=== PATIENT | female | born 1990 | race African-American/Black ===

== ENCOUNTER 2020-01-01 00:27 | Emergency (ER) | payer OTHER, SELFPAY ==
--- NOTE | ~2020-01-01 | CT_ITS ---
EXAMINATION: CT soft tissue neck w con DATE: 01/01/2020 03:43 INDICATION: Right jaw and neck pain. Tooth pain. TECHNIQUE: Computed tomography (CT) of the neck was performed with 75 mL Omnipaque-350 intravenous co ntrast. Automated exposure control and iterative reconstruction technique were employed. The dose-phillip gth product was 526.56 mGy-cm. COMPARISON: None FINDINGS: There are no pathologically enlarged lymph nodes. There is mild mucosal thickening in left maxillary sinus. Tooth 14 is broken with periapical lucencies. Tooth 29 is broken with periapical yvonne encies. There are periapical lucencies of tooth 30. There is soft tissue swelling superficial to the right mandibular body. No subperiosteal abscess. IMPRESSION: 1. Dental disease. Reviewed, dictated and finalized at location A. OFF DRIVER IMPRESSION: 1. Dental disease.
[2020-01-01 01:06] VITALS: BP 130/86; PULSE 83; RESP 18; TEMP 36.8; O2SAT 100
[2020-01-01 01:58] VITALS: BP 141/87; PULSE 62; RESP 16; TEMP 36.8; O2SAT 100
--- NOTE | 2020-01-01 02:20 | ED.DENTAL ---
HPI - Dental/Oral General Chief complaint: Dental/Oral Stated complaint: TOOTH Time Seen by Provider: 01/01/20 02:18 Source: patient and RN notes reviewed Mode of arrival: other Limitations: no limitations History of Present Illness HPI Narrative: Pt is a 29 y/o female who presents to the ED with c/o tooth pain on her right upper jaw that radiates to her neck that began a couple of weeks ago. Pt went to her dentist in [facility] in [facility] and was given abx. Pt is unsure of the abx she was given, but she states that she was on the abx for a couple of weeks. Pt has taken ASA and Tylenol, but with no relief. Pt had ASA powder at 4 PM yesterday (12/31/19). Pt also reports otalgia and difficulty sleeping. Complaint: tooth pain Onset (ago): week(s) (couple) Duration: constant Relieving factors: nothing Associated symptoms: ear pain and other (difficulty sleeping) Treatment prior to arrival: other (Tylenol and ASA) Related Data Allergies Allergy/AdvReac Type Severity Reaction Status Date / Time No Known Allergies Allergy Unverified 02/13/18 18:14 Review of Systems Review of Systems: All systems reviewed & are unremarkable except as noted in HPI and below Constitutional: Constitutional: Reports difficulty sleeping ENT: Reports dental pain (on her right upper jaw that radiates to her neck) and Reports otalgia PMFSH Past Medical History Medical History (Updated 01/01/20 @ 04:16 by Sabrina Chang MD) Patient denies significant medical history Surgical History Surgical History (Updated 01/01/20 @ 02:27 by Oma Oliveros) Hx of appendectomy Hx of section x3 Social History Social History (Updated 01/01/20 @ 02:28 by Oma Oliveros) Smoking status: Never smoker Gender identity (if verbalized by the patient): Female Exam Const: General: cooperative, no acute distress and alert Nutritional Appearance: well nourished Orientation/consciousness: patient oriented x3 Limitations: no limitations HENMT: Mouth: Yes other (no fullness in bottom of her mouth) Teeth and gingiva: caries, gingiva abnormal edematous (Mild right lower surrounding molars, no fluctuance) and tender (Right lower molars) and other (Tooth 29 missing, decay teeth 30, 31, and 32) Throat: posterior oropharynx normal and uvula midline Other: Pt has mild gum swelling with no fluctuance Neck: Neck: no lymphadenopathy (significant) Resp: Effort & Inspection: normal respiratory effort Auscultation: clear to auscultation bilaterally Cardio: Rate: regular rate Rhythm: regular rhythm Skin: General skin exam: normal color Neuro: General: patient oriented x3 Cognition (Neuro): normal cognition Speech: normal speech Extrem: General: normal to inspection, full ROM and no clubbing, cyanosis or edema Psych: Mental Status: mental status grossly normal Affect: normal affect Attitude: cooperative Course Course Emergency Course: Patient presents with right-sided toothache with report of swelling to the right lower jaw. Patient states pain is going up into her ear and all the way down the right side of her neck. Patient sent for CT scan to rule out Ludewig's angina. Patient will be placed on antibiotics and is advised to follow-up with dentist for further care. Vital Signs Vital signs: Vital Signs Temperature 98.3 F 01/01/20 01:06 Pulse Rate 83 01/01/20 01:06 Respiratory Rate 18 01/01/20 01:06 Blood Pressure 130/86 01/01/20 01:06 Pulse Oximetry 100 01/01/20 01:06 Temperature 98.3 F 01/01/20 01:58 Pulse Rate 62 01/01/20 01:58 Respiratory Rate 16 01/01/20 01:58 Blood Pressure 141/87 H 01/01/20 01:58 Pulse Oximetry 100 01/01/20 01:58 MDM - Dental/Oral Differential Diagnosis Differential diagnosis: Likely gingival abscess, dental caries, toothache, dental abscess and other (Ludewig's angina) Lab Data Result diagrams: 01/01/20 03:31 Labs: Lab Results 01/01/20 Range/Un
[2020-01-01] MEDS: KETOROLAC 30 MG/ML VIAL (*BKC) IV PUSH (03:02)
[2020-01-01] MEDS: CLINDAMYCIN 900 MG/NS 50 ML 900 MG/50 ML PIGGYBACK 50 MG IVPB (03:03)
[2020-01-01 03:32] VITALS: TEMP 36.8
[2020-01-01 03:33] LABS: Blood Urea Nitrogen 11 mg/dL (8-26); Estimated CRCL calculation 136 ml/min; Estimated Glomerular Filt Rate > 60
[2020-01-01 04:42] VITALS: BP 134/78; PULSE 68; RESP 18; TEMP 36.9; O2SAT 99
== END 2020-01-01 04:44 | disposition home or self-care (01) ==
PROVIDERS: Emergency Provider Emergency Medicine
DX: K02.9 Dental caries, unspecified (principal)
CPT/HCPCS: 70491; 96365; 96375; 99284; J1885; Q9967

== ENCOUNTER 2020-01-02 04:35 | Emergency (ER) | payer OTHER, SELFPAY ==
[2020-01-02 04:42] VITALS: BP 143/71; PULSE 60; RESP 18; TEMP 36.7; O2SAT 100
--- NOTE | 2020-01-02 05:05 | PC.NURSE ---
Patient called this nurse into room to state that her tooth started to throb really bad then started to bleed. This nurse assessed the patient's tooth and mouth, there was clotting blood and slight bleeding from patient's right lower jaw, where she had her tooth removed. EDP notified.
--- NOTE | 2020-01-02 05:18 | ED.DENTAL ---
HPI - Dental/Oral General Chief complaint: Dental/Oral Stated complaint: dental pain Time Seen by Provider: 01/02/20 04:39 Source: old records reviewed History of Present Illness HPI Narrative: Patient presents emergency department from home for dental pain. Patient states that she has been having pain in her right lower tooth for the past several days she was seen in the emergency department last night and was prescribed antibiotics. Patient states she also had a CT scan at that time. She went to an emergency dental appointment today and had a tooth pulled at the dental clinic. Patient states that since that time she has continued to have pain in the right lower jaw with swelling present. She states that she was given Tylenol 3 for the pain with minimal relief. Patient states she has been taking her antibiotics as prescribed. She denies any fevers or chills inability to swallow or any other symptoms of concern Related Data Allergies Allergy/AdvReac Type Severity Reaction Status Date / Time No Known Allergies Allergy Unverified 02/13/18 18:14 Review of Systems Review of Systems: Narrative: Gen.: Denies fevers or chills ENT: HPI Respiratory: Denies shortness of breath CV: Denies chest pain GI: Denies abdominal pain nausea, emesis denies chance of Musculoskeletal: Denies neck pain Neuro: Denies headache Skin: Denies rash Except as documented, all other systems reviewed and negative PMFSH Past Medical History Medical History Patient denies significant medical history Surgical History Surgical History (Updated 01/01/20 @ 02:27 by Oma Oliveros) Hx of appendectomy Hx of section x3 Social History Social History Smoking status: Never smoker Gender identity (if verbalized by the patient): Female Exam Narrative: Exam Narrative: APPEARANCE: No acute distress, nontoxic, resting in bed HEENT: Normocephalic, atraumatic, TMs clear bilaterally, nares patent, oral mucosa moist, airway patent, tooth #29 has been removed there is a small wound with no active bleeding present no erythema the gum no fluctuance, there were several other carious teeth. Tender to palpation over the jaw in this region with mild swelling no erythema or fluctuance there is no submandibular or sublingual or tenderness, uvula midline voice normal tolerating own secretions RESPIRATORY: No respiratory distress MUSCULOSKELETAl: Moves all extremities. NEURO: Awake and alert. Following commands, speech normal, no focal deficits SKIN:: Warm, dry. Normal Color PSYCHIATRIC: Normal affect/mood Course Course Emergency Course: Reviewed old records. Reviewed CT scan. At this time not believe a repeat CT scan is indicated as the risk of radiation outweighs benefits. At this time I will switch the patient's antibiotics had ibuprofen and have patient follow-up with dentist as outpatient Vital Signs Vital signs: Vital Signs Temperature 98.1 F 01/02/20 04:42 Pulse Rate 60 01/02/20 04:42 Respiratory Rate 18 01/02/20 04:42 Blood Pressure 143/71 H 01/02/20 04:42 Pulse Oximetry 100 01/02/20 04:42 Temperature 98.1 F 01/02/20 04:42 Pulse Rate 60 01/02/20 04:42 Respiratory Rate 18 01/02/20 04:42 Blood Pressure 143/71 H 01/02/20 04:42 Pulse Oximetry 100 01/02/20 04:42 Discharge Plan Discharge Clinical Impression: Odontalgia Patient Disposition: Home, Self-Care Condition: Stable Instructions: Antibiotic Form, Toothache (ED) Additional Instructions: Return for increasing pain, fever vomiting or any other symptoms of concern. Stop taking her penicillin and instead take clindamycin as prescribed Prescriptions: New ibuprofen [IBU] 600 mg tablet 600 mg PO Q6H PRN (Reason: pain) Qty: 20 RF: 0 clindamycin HCl 300 mg capsule 300 mg PO Q6H Qty: 30 RF: 0 No Action
[2020-01-02] MEDS: CLINDAMYCIN HCL 150 MG CAP 300 MG PO (05:32)
[2020-01-02 07:05] VITALS: BP 123/65; PULSE 63; RESP 18; O2SAT 97
== END 2020-01-02 07:05 | disposition home or self-care (01) ==
PROVIDERS: Emergency Provider Emergency Medicine
DX: K08.89 Other specified disorders of teeth and supporting structures (principal)
CPT/HCPCS: 99283; A9270

== ENCOUNTER 2020-10-05 08:25 | Emergency (ER) | payer OTHER, SELFPAY ==
[2020-10-05 08:32] VITALS: BP 111/84; PULSE 73; RESP 16; TEMP 36; O2SAT 99
--- NOTE | 2020-10-05 08:37 | ED.DENTAL ---
HPI - Dental/Oral General Chief complaint: Dental/Oral Stated complaint: Tooth Pain Source: patient Mode of arrival: ambulatory Limitations: no limitations History of Present Illness HPI Narrative: Patient is a 29 yo female who presents with left lower dental pain x3 to 4 days. Patient reports that she has a dental appointment in November and was referred here for antibiotics and pain control. Patient denies all other complaints. Patient denies significant past medical history. Patient denies taking anything for pain prior to arrival. MD Complaint: tooth pain Related Data Allergies Allergy/AdvReac Type Severity Reaction Status Date / Time No Known Allergies Allergy Unverified 02/13/18 18:14 Review of Systems Review of Systems: Narrative: CONSTITUTIONAL: Denies fever, chills, or sweats. EYES: Denies visual changes, redness, or discharge. ENT: Denies rhinorrhea, congestion, sore throat, or otalgia. Reports the left lower dental pain x3 days CARDIOVASCULAR: Denies chest pain, palpitations, or edema. RESPIRATORY: Denies cough or dyspnea. GASTROINTESTINAL: Denies abdominal pain, nausea, vomiting, or diarrhea. GENITOURINARY: Denies dysuria or hematuria. SKIN: Denies rash or itching. MUSCULOSKELETAL: Denies back pain, joint pain, or myalgia. NEUROLOGIC: Denies headache, numbness, dizziness, or weakness. PSYCHIATRIC: Denies anxiety or depression. PMFSH Past Medical History Medical History (Updated 10/05/20 @ 08:45 by MINERVA Borja) Patient denies significant medical history Surgical History Surgical History Hx of appendectomy Hx of section x3 Family History Family History Other Diabetes mellitus Social History Social History Smoking status: Never smoker Alcohol intake: never Substance use: never Living arrangements: with family Gender identity (if verbalized by the patient): Female Exam Narrative: Exam Narrative: GENERAL: Well-appearing, well-nourished, and in no acute distress. HEAD: Normocephalic, atraumatic. EYES: No redness or drainage. ENT: Mucous membranes pink and moist. Multiple dental caries, dental fractures. CHEST: No respiratory distress. HEART: Regular rate and rhythm. EXTREMITIES: Normal range of motion. SKIN: Warm, dry, no rash. NEURO: No focal deficits. Alert and oriented x3. Gait steady. PSYCH: Normal affect. No signs of depression or anxiety. Course Vital Signs Vital signs: Vital Signs Temperature 36.0 C L 10/05/20 08:32 Pulse Rate 73 10/05/20 08:32 Respiratory Rate 16 10/05/20 08:32 Blood Pressure 111/84 10/05/20 08:32 Pulse Oximetry 99 10/05/20 08:32 Temperature 36.0 C L 10/05/20 08:32 Pulse Rate 73 10/05/20 08:32 Respiratory Rate 16 10/05/20 08:32 Blood Pressure 111/84 10/05/20 08:32 Pulse Oximetry 99 10/05/20 08:32 Reviewed. MDM - Dental/Oral MDM Narrative Medical decision making narrative: Patient has multiple dental caries and dental fractures. Discussed with patient the need for follow-up with dentist. Patient has an appointment in November. Patient be started on antibiotics at this time. Patient is stable for discharge to home with outpatient follow-up as needed. Differential Diagnosis Differential diagnosis: Likely gingival abscess, dental caries, toothache, dental abscess and fracture of tooth Medical Records Attestation: I reviewed the patient's medical records. Critical Care Time Critical Care Time Critical Care Time: No Discharge Plan Discharge Clinical Impression: Toothache, Dental caries Patient Disposition: Home, Self-Care Condition: Stable Instructions: Antibiotic Form, Toothache (ED) Additional Instructions: Take antibiotics as directed. Take the full course of antibiotics. Take ibuprofen as directed
== END 2020-10-05 08:49 | disposition home or self-care (01) ==
PROVIDERS: Emergency Provider Nurse Practitioner
DX: K02.9 Dental caries, unspecified (principal)
CPT/HCPCS: 99213; G0463

== ENCOUNTER 2021-02-24 10:06 | Emergency (ER) | payer OTHER, SELFPAY ==
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
[2021-02-24 10:15] VITALS: BP 126/70; PULSE 66; RESP 18; TEMP 36.4; O2SAT 100
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
== END 2021-02-24 11:33 | disposition home or self-care (01) ==
PROVIDERS: Emergency Provider Nurse Practitioner
DX: S16.1XXA Strain of muscle, fascia and tendon at neck level, initial encounter (principal); S20.222A Contusion of left back wall of thorax, initial encounter; S20.212A Contusion of left front wall of thorax, initial encounter; S40.012A Contusion of left shoulder, initial encounter; S80.01XA Contusion of right knee, initial encounter; S10.91XA Abrasion of unspecified part of neck, initial encounter; V47.5XXA Car driver injured in collision with fixed or stationary object in traffic accident, initial encounter
CPT/HCPCS: 71046; 72050; 73030; 73562; 99214; G0463

== ENCOUNTER 2023-11-29 01:49 | Emergency (ER) | payer OTHER, SELFPAY ==
[2023-11-29] VITALS (9 sets, daily range): BP systolic 127–130; BP diastolic 81–92; PULSE 60–88; RESP 16–19; TEMP 36.6; O2SAT 99–100
--- NOTE | ~2023-11-29 | XR_ITS ---
Portable chest x-ray Comparison: 02/24/2021 Clinical History: Headache, weakness Findings: Lungs are clear, without focal consolidation or pleural effusion. Cardiomediastinal silho uette is stable. Bones and soft tissues are unremarkable. Impression: Normal chest. Reviewed, dictated and finalized at [facility]. P SEWER Impression: Normal chest.
--- NOTE | 2023-11-29 02:29 | ECG_ITS ---
Measurements Intervals [place] Rate: 48 P: 43 VA: 178 QRS: 11 QRSD: 86 T: 4 QT: 452 QTc: 406 Interpretive Statements SINUS BRADYCARDIA VOLTAGE CRITERIA FOR LVH NONSPECIFIC T-WAVE ABNORMALITY- ANTEROLAT/INF LEADS ABNORMAL ECG NO PREVIOUS ECG AVAILABLE FOR COMPARISON Electronically Signed On 11-29-2023 6:17:44 [employer]IS[employer]LE CHECKOUT TECHNICIAN by Jesus Alberto Morris D.O.
[2023-11-29 02:56] LABS: Appearance Urine Clear (Clear); Bilirubin Urine Negative (Negative); Blood Urine Negative (Negative); Color Urine Yellow (Yellow); Glucose Urine UA Negative (Negative); Ketones Urine Negative (Negative); Leukocyte Esterase Ur Negative LEU/UL (Negative); Nitrate Urine Negative (Negative); Protein Urine Negative (Negative); Specific Grav Ur 1.006 (1.001-1.035); pH Urine 6.5 (5.0-9.0)
[2023-11-29] MEDS: SODIUM CHLORIDE 0.9% IV 1,000 ML 999 ML IV CONT (02:57)
[2023-11-29] MEDS: MECLIZINE HCL 25 MG TABLET PO (02:57)
[2023-11-29] MEDS: diphenhydrAMINE HCl INJ 50 MG/ML VIAL IV PUSH (02:57)
[2023-11-29] MEDS: PROCHLORPERAZINE EDISYLATE 10 MG/2 ML VIAL IV PUSH (02:57)
[2023-11-29 03:00] LABS: Basophils Percent Auto 0.5 % (0.2-1.2); Eosinophils Absolute Auto 0.2 K/mm3 (0-0.3); Eosinophils Percent Auto 3.7 % (0-4.4); Hematocrit 36.4 % (37.0-47.0); Hemoglobin 11.2 g/dL (12.0-15.0); Immature Granulocyte Absolute 0.02 K/mm3 (0.00-0.031); Immature Granulocyte Percent A 0.4 % (0-0.5); Lymphocytes Absolute Auto 1.77 K/mm3 (0.9-3.2); Lymphocytes Percent Auto 31.3 % (18.3-44.2); Mean Corpuscular HGB Conc 30.8 g/dl (32-36); Mean Corpuscular Hemoglobin 25.7 pg (26-34); Mean Corpuscular Volume 83.7 fl (80-100); Mean Platelet Volume 9.6 fl (7.4-10.4); Monocytes Absolute Auto 0.5 K/mm3 (0.1-0.6); Neutrophils Absolute Auto 3.2 K/mm3 (1.3-6.7); Neutrophils Percent Auto 56.1 % (45.5-73.1); Platelet Count Result 328 k/mm3 (150-375); Red Blood Count 4.35 M/mm3 (4.2-5.4); Red Cell Distribution Width 14.5 % (11.5-14.5); White Blood Count 5.7 K/mm3 (4.5-10.0)
[2023-11-29 03:05] LABS: Add Urine Microscopic? NO
[2023-11-29 03:11] LABS: Magnesium 2.2 mg/dL (1.6-2.3)
[2023-11-29 03:12] LABS: Alanine Aminotransferase 60 U/L (6-35); Albumin Level 3.9 g/dL (3.5-5.1); Alkaline Phosphatase 75 U/L (38-126); Anion Gap 7 mmol/L (8-16); Aspartate Amino Transferase 34 U/L (14-36); Bilirubin,Total 0.5 mg/dL (0.2-1.3); Blood Urea Nitrogen 9 mg/dL (7-17); Calcium 9.2 mg/dL (8.4-10.2); Carbon Dioxide 29 mmol/L (22-30); Chloride 103 mmol/L (98-107); Estimated CRCL calculation 128 ml/min; Estimated Glomerular Filt Rate > 60; Glucose 109 mg/dL (65-110); Potassium 4.3 mmol/L (3.4-5.0); Sodium 139 mmol/L (137-145)
[2023-11-29 03:23] LABS: Troponin I < 0.012 ng/mL (0.000-0.034)
[2023-11-29] MEDS: ONDANSETRON INJ 4 MG/2 ML VIAL IV PUSH (04:43)
--- NOTE | 2023-11-29 04:47 | ED.GENADULT ---
HPI - General Adult General Chief complaint: Headache Stated complaint: dizzy, nausea, headache Time Seen by Provider: 11/29/23 02:17 History of Present Illness HPI narrative: Patient is a 33-year-old female who presents emergency department with chief complaint of dizziness. Patient reports that for the last week she has been having intermittent episodes of dizziness which she describes as the room spinning patient reports symptoms are worse when she turns her head from side to side reports that she has no focal deficits. Patient reports that she has no chest pain no shortness of breath. Related Data Allergies Allergy/AdvReac Type Severity Reaction Status Date / Time No Known Allergies Allergy Verified 02/24/21 10:10 Review of Systems Review of Systems: A 10 system review of systems was completed on the patient and is negative except for what is stated in the HPI. Nursing and ancillary documentation was reviewed. PMFSH Past Medical History Medical History Patient denies significant medical history Surgical History Surgical History H/O tubal ligation Hx of appendectomy Hx of section x3 Family History Family History Other Diabetes mellitus Social History Social History Smoking status: Never smoker Alcohol intake: never Substance use: never Living arrangements: with family Gender identity (if verbalized by the patient): Female Exam Narrative: GENERAL: Well-appearing, well-nourished, and in no acute distress. HEAD: Normocephalic, atraumatic. EYES: PERRLA and EOMI. ENT: Nares clear, no rhinorrhea or epistaxis. Mucous membranes moist. NECK: Supple. CHEST: Clear to auscultation. No respiratory distress. HEART: Regular rate and rhythm. No murmur heard. Normal peripheral pulses. ABDOMEN: Soft, nontender, nondistended, normal active bowel sounds. EXTREMITIES: Normal range of motion. No edema. SKIN: Warm, dry, no rash. NEURO: No focal deficits. Alert and oriented x3. PSYCH: Normal mood and affect. Course Vital Signs Vital signs: Vital Signs Temperature 36.6 C 11/29/23 01:55 Pulse Rate 63 11/29/23 01:55 Respiratory Rate 16 11/29/23 01:55 Blood Pressure 130/92 H 11/29/23 01:55 Pulse Oximetry 100 11/29/23 01:55 Oxygen Delivery Room Air 11/29/23 01:55 Temperature 36.6 C 11/29/23 01:55 Pulse Rate 60 11/29/23 04:00 Respiratory Rate 17 11/29/23 04:00 Blood Pressure 127/84 11/29/23 04:00 Pulse Oximetry 100 11/29/23 04:00 Oxygen Delivery Room Air 11/29/23 01:55 Medical Decision Making MDM Narrative Medical decision making narrative: Differential diagnosis includes vertigo, electrolyte abnormality, dehydration, laboratory studies were obtained on the patient which were within normal limits. Chest x-ray showed no focal infiltrate EKG showed sinus bradycardia at a rate of 48 the patient was not symptomatic when she was bradycardic. current resting heart rate is 54 sinus bradycardia. The patient is currently not symptomatic after receiving IV fluids antiemetics and anti vertigo medications Vital Signs Vital Signs: Vital Signs Temperature 36.6 C 11/29/23 01:55 Pulse Rate 63 11/29/23 01:55 Respiratory Rate 16 11/29/23 01:55 Blood Pressure 130/92 H 11/29/23 01:55 Pulse Oximetry 100 11/29/23 01:55 Oxygen Delivery Room Air 11/29/23 01:55 Temperature 36.6 C 11/29/23 01:55 Pulse Rate 60 11/29/23 04:00 Respiratory Rate 17 11/29/23 04:00 Blood Pressure 127/84 11/29/23 04:00 Pulse Oximetry 100 11/29/23 04:00 Oxygen Delivery Room Air 11/29/23 01:55 Lab Data 11/29/23 02:55 11/29/23 02:55 Labs: L
== END 2023-11-29 05:09 | disposition home or self-care (01) ==
PROVIDERS: Emergency Provider Emergency Medicine
DX: R42 Dizziness and giddiness (principal); R00.1 Bradycardia, unspecified; R94.31 Abnormal electrocardiogram [ECG] [EKG]
CPT/HCPCS: 36415; 71045; 80053; 81003; 81025; 83605; 83735; 84484; 85025; 93005; 96361; 96374; 96375; 99284; A9270; J0780; J1200; J2405; J7030

== ENCOUNTER 2024-03-10 08:17 | Emergency (ER) | payer OTHER, SELFPAY ==
--- NOTE | 2024-03-10 08:24 | ED.EYEPROB ---
HPI - Eye Problem General Chief complaint: Eye Problems Stated complaint: Right Eye Irritation Time Seen by Provider: 03/10/24 08:25 Source: patient Mode of arrival: ambulatory Limitations: no limitations History of Present Illness HPI Narrative: Patient is a 33-year-old female who presents with right eye drainage irritation and redness since yesterday. Patient states this started at work. Patient reports eye was matted shut this morning. Reports green drainage. Related Data Allergies Allergy/AdvReac Type Severity Reaction Status Date / Time No Known Allergies Allergy Verified 03/10/24 08:19 Review of Systems Review of Systems: All systems reviewed & are unremarkable except as noted in HPI and below Constitutional: Constitutional: Denies body ache(s), Denies fever(s), Denies headache(s), Denies malaise and Denies weakness Eyes: Eyes: Denies blurry vision, Reports eye discharge, Reports irritation, Reports itchy eyes, Denies loss of vision and Denies eye pain ENT: Denies otalgia, Denies headache(s), Denies nasal discharge, Denies sinus pain and Denies sore throat Cardiovascular: Cardiovascular: Denies chest pain, Denies irregular heart rhythm and Denies dyspnea Respiratory: Respiratory: Denies dyspnea Gastrointestinal: Gastrointestinal: Denies abdominal pain, Denies diarrhea, Denies nausea and Denies vomiting Musculoskeletal: Musculoskeletal: Denies back pain, Denies myalgias and Denies arthralgias Integumentary/Breasts: Skin/Breast: Denies pruritus and Denies rash Neurologic: Denies headache(s), Denies loss of vision and Denies weakness Psychiatric: Psychiatric: Reports no additional psychiatric complaints Allergic/Immunologic: Allergic/Immunologic: Reports itchy eyes PMFSH Past Medical History Medical History Patient denies significant medical history Surgical History Surgical History H/O tubal ligation Hx of appendectomy Hx of section x3 Family History Family History Other Diabetes mellitus Social History Social History Smoking status: Never smoker Alcohol intake: never Substance use: never Living arrangements: with family Gender identity (if verbalized by the patient): Female Comments At time of signature, agree with nursing past medical, surgical, social and family history. There is no relevant family history pertinent to the presenting complaint. Exam Const: General: cooperative, healthy appearing, comfortable, no acute distress and well nourished Nutritional Appearance: well nourished Orientation/consciousness: patient oriented x3 Limitations: no limitations HENMT: Head: normal to inspection, normocephalic and atraumatic Ears: external ears normal Face/Nose/Sinus: Normal external nose present, normal facial exam and face symmetric Face and sinus: normal facial exam and face symmetric Mouth: Yes lip normal Eyes: General: appearance normal, both eyes and all related structures Visual Kevin: normal visual kevin by confrontation Alignment and Position: alignment normal and position normal Periorbital: periorbital findings normal Eyelids: eyelids normal Conjunctivae: conjunctival abnormality right conjunctival injection diffuse and discharge mucoid Sclera: scleral abnormality right scleral injection diffuse Pupils: Equal, round and reactive pupils present EOM: EOMs intact bilaterally Direct Ophthalmoscopy: no photophobia Other: No hyphema, no foreign body under the lids. Neck: Neck: normal visual inspection, full ROM, no lymphadenopathy and no meningeal signs Chest: Chest palpation & inspection: normal inspection of the chest Resp: Effort & Inspection: normal respiratory effort and able to speak in complete sentences Auscultation: c
[2024-03-10 08:28] VITALS: BP 116/69; PULSE 61; RESP 16; TEMP 36.9; O2SAT 100
== END 2024-03-10 08:40 | disposition home or self-care (01) ==
PROVIDERS: Emergency Provider Nurse Practitioner Family; PCP Family Medicine
DX: H10.89 Other conjunctivitis (principal)
CPT/HCPCS: 99213; G0463

== ENCOUNTER 2024-10-06 08:36 | Emergency (ER) | payer OTHER, SELFPAY ==
--- NOTE | 2024-10-06 08:41 | ED.URI ---
HPI - URI/Sore Throat General Chief Complaint: Upper Respiratory Infection Stated Complaint: Sore Throat Time Seen by Provider: 10/06/24 08:42 Source: patient Mode of arrival: ambulatory Limitations: no limitations History of Present Illness HPI Narrative: Patient is a 33-year-old female with 4 days of sore throat, postnasal drip, cough and chills. Patient has tried [id number] medication with no relief. Denies any ear pain, fever, nausea, vomiting, diarrhea. Related Data Home Medications Medication Instructions Recorded Confirmed sertraline 50 mg tablet 50 mg PO DAILY 10/06/24 10/06/24 Allergies Allergy/AdvReac Type Severity Reaction Status Date / Time No Known Allergies Allergy Verified 10/06/24 08:50 Review of Systems Review of Systems: All systems reviewed & are unremarkable except as noted in HPI and below Constitutional: Constitutional: Denies body ache(s), Reports chills, Denies fatigue, Denies fever(s), Denies headache(s), Denies malaise and Denies weakness Eyes: Eyes: Denies blurry vision, Denies itchy eyes and Denies loss of vision ENT: Denies otalgia, Denies headache(s), Reports nasal congestion, Denies sinus pain and Reports sore throat Cardiovascular: Cardiovascular: Denies chest pain, Denies irregular heart rhythm and Denies dyspnea Respiratory: Respiratory: Reports cough and Denies dyspnea Gastrointestinal: Gastrointestinal: Denies abdominal pain, Denies diarrhea, Denies nausea and Denies vomiting Musculoskeletal: Musculoskeletal: Denies back pain, Denies myalgias and Denies arthralgias Integumentary/Breasts: Skin/Breast: Denies pruritus and Denies rash Neurologic: Denies headache(s), Denies loss of vision and Denies weakness Psychiatric: Psychiatric: Reports no additional psychiatric complaints Endocrine: Endocrine: Denies fatigue Allergic/Immunologic: Allergic/Immunologic: Denies itchy eyes PMFSH Past Medical History Medical History Patient denies significant medical history Surgical History Surgical History H/O tubal ligation Hx of appendectomy Hx of section x3 Family History Family History Other Diabetes mellitus Social History Social History Smoking status: Never smoker Alcohol intake: never Substance use: never Living arrangements: with family Gender identity (if verbalized by the patient): Female Comments At time of signature, agree with nursing past medical, surgical, social and family history. There is no relevant family history pertinent to the presenting complaint. Exam Const: General: cooperative, healthy appearing, comfortable, no acute distress and well nourished Nutritional Appearance: well nourished Orientation/consciousness: patient oriented x3 Limitations: no limitations HENMT: Head: normal to inspection, normocephalic and atraumatic Ears: hearing grossly normal bilaterally, external ears normal, TM's normal bilaterally, EAC's normal and no periauricular adenopathy Face/Nose/Sinus: Normal external nose present, Abnormal mucous membranes and turbinates present erythematous bilateral and diffuse, normal facial exam, sinuses nontender and face symmetric Face and sinus: normal facial exam, sinuses nontender and face symmetric Mouth: Yes Normal oral and palatal mucosa present, Yes lip normal, Yes tongue normal, Yes Normal salivary glands and ducts present, Yes oropharynx normal and Yes moist mucous membranes Teeth and gingiva: dentition normal Throat: posterior oropharynx normal, tonsils normal and uvula midline Eyes: General: appearance normal, both eyes and all related structures Alignment and Position: alignment normal and position normal Periorbital: periorbital findings normal Eyelids: eyelids normal Pupils: Equal, round and reactive pupils present Neck: Neck: normal visual inspection, full ROM, no lymphadenopathy and supple Chest: Chest palpation & inspection: normal inspection of the chest and normal palpation of entire chest wall Resp: Effort & Inspection: normal respiratory effort and able to speak in complete sentences Auscultation: no crackles, no rales, no rhonchi and wheezes scattered wheezes and throughout Cardio: Rate: regular rate Rhythm: regular rhythm Heart sounds: S1 normal heart sound present and S2 normal heart sound present GI: Inspection: normal to inspection Skin: General skin exam: normal color and no rashes or lesions noted Neuro: General: patient oriented x3 and moves all extremities Cranial nerves: Yes Equal, round and reactive pupils present Speech: normal speech Gait exam (Neuro): Normal gait present Extrem: General: normal to inspection, full ROM and no edema Psych: Appearance: grossly normal and well kempt Mental Status: mental status grossly normal Speech and movement: Normal speech and movement present Affect: normal affect Attitude: cooperative Thought process: Normal thought process present Course Course Emergency Course: Patient is aware of diagnosis, understands and agrees to treatment plan. Anticipatory guidance given. Patient agrees to follow-up as directed and is aware of reasons to seek care at the emergency department. Portions of this record may have been created with voice recognition software Level of Care: Express Care Visit Vital Signs Vital signs: Vital Signs Temperature 36.4 C 10/06/24 08:45 Pulse Rate 66 10/06/24 08:45 Respiratory Rate 16 10/06/24 08:45 Blood Pressure 134/69 10/06/24 08:45 Pulse Oximetry 98 10/06/24 08:45 Oxygen Delivery Room Air 10/06/24 08:45 Temperature 36.4 C 10/06/24 08:45 Pulse Rate 66 10/06/24 08:45 Respiratory Rate 16 10/06/24 08:45 Blood Pressure 134/69 10/06/24 08:45 Pulse Oximetry 98 10/06/24 08:45 Oxygen Delivery Room Air 10/06/24 08:45 Reviewed MDM - URI/Sore Throat MDM Narrative Medical decision making narrative: Discharge instructions reviewed with patient, as well as provided in writing per nursing staff. The instructions also include specific and strict return/GO TO THE ER as well as f/u information. All questions have been answered, and the patient deny any further questions with discharge and discharge plan. Differential diagnosis considered: Yoder virus, strep pharyngitis, allergic rhinitis, upper respiratory tract infection, sinusitis, rhinosinusitis, nasopharyngitis. viral pharyngitis, otitis media, otitis externa, otitis effusion, foreign body, cerumen impaction, viral syndrome, and influenza.? Exam findings show no acute concerns or changes; patient is non-toxic appearing and is in no distress.? Patient is appropriate for outpatient treatment and follow-up.? Medical Records Attestation: I reviewed the patient's medical records. Lab Data Attestation: I reviewed the patient's lab results. Lab results narrative: Patient was negative for strep Discharge Plan Discharge Clinical Impression: Upper respiratory infection Qualifiers: URI type: unspecified viral URI Qualified Code(s): J06.9 - Acute upper respiratory infection, unspecified Patient Disposition: Home, Self-Care Condition: Stable Instructions: Upper Respiratory Infection (ED) Additional Instructions: Your rapid strep swab was negative today at [facility]. A throat culture will be sent to the laboratory for further testing. If the test is positive, you will receive a phone call within 48 hours and an appropriate antibiotic will be initiated at that time. Your symptoms are likely due to a viral illness, which is not treated with antibiotics. Viral symptoms can be present for up to a few weeks. -Alternate Tylenol and Motrin per package directions for fever or pain. -Antihistamine medication such as Benadryl/Zyrtec at night and Claritin/Carmen during the day can help improve symptoms. -Use Flonase twice a day for 5 days then daily to help reduce the inflammation and dry up your sinuses. -You can also use Sudafed behind the pharmacy counter(12 or 24 hour). Be sure to drink plenty of water with these medications at least 8 ounces with every dose and it is important to drink 8 to 10 glasses of water per day. Water is a natural decongestant -Eat and drink things that are easy to swallow, like tea or soup, or popsicles. -Oral rinses such as: Salt water gargles and/or may use topical anesthetic (eg. Chloraseptic spray) or lozenges to relieve dryness or throat pain). -Frequent hand washing or hand biofuels production technician is one of the best ways to prevent spread of infection. -Using a vaporizer or humidifier at night will also help thin secretions and help with coughing up phlegm. -Follow up with primary care provider in 3-5 days if condition is not improving - For new or worsening symptoms go directly to the nearest ER Prescriptions: New lidocaine HCl [Lidocaine Viscous] 2 % solution 5 ml mucous membrane TID PRN (Reason: pain) 7 Days Qty: 100 0RF fluticasone propionate [Flonase Allergy Relief] 50 mcg/actuation spray,suspension 1 spray intranasal DAILY Qty: 16 0RF Rx Instructions: administer into each nostril loratadine 10 mg tablet 10 mg PO DAILY Qty: 30 0RF albuterol sulfate 90 mcg/actuation HFA aerosol inhaler 2 puff inhalation QID PRN (Reason: shortness of breath or wheezing) Qty: 6.7 0RF (DME) Aerochamber MV Spacer See Rx Instructions .Route Qty: 1 0RF Rx Instructions: As directed No Action sertraline 50 mg tablet 50 mg PO DAILY Follow-up/Referrals: Lydia,MD Sanna [Primary Care Provider] - 3 Days Stand Alone Forms: Work/School Release IP Time of Disposition: 09:25
[2024-10-06 08:45] VITALS: BP 134/69; PULSE 66; RESP 16; TEMP 36.4; O2SAT 98
[2024-10-06 09:42] LABS: EDSTREPNEGPOS1 Negative (Negative)
== END 2024-10-06 09:35 | disposition home or self-care (01) ==
PROVIDERS: Emergency Provider Nurse Practitioner Family; PCP Family Medicine
DX: J06.9 Acute upper respiratory infection, unspecified (principal)
CPT/HCPCS: 87081; 87880; 99213; G0463